=== PATIENT | male | born 1970 | race Caucasian/White ===

== ENCOUNTER 2019-04-17 18:06 | Emergency (ER) | payer MEDICAID ==
[~2019-04-17] VITALS: Ht 180.3 cm; Wt 69.7 kg
[2019-04-17] MEDS ORDERED: ketorolac tromethamine 15mg/ml inj. IM ONE (19:10)
[2019-04-17] MEDS ORDERED: orphenadrine citrate 60mg/2ml inj. IM ONE (19:10)
[2019-04-17] MEDS ORDERED: IBUP-1985 PO (19:11)
[2019-04-17] MEDS ORDERED: METH-360 PO (19:11)
[2019-04-17 19:35] VITALS: BP 127/65
== END 2019-04-17 19:36 | disposition home or self-care (01) ==
LOC: ER 18:06
DX: S29.019A Strain of muscle and tendon of unspecified wall of thorax, initial encounter (principal); M54.5 Low back pain; F17.200 Nicotine dependence, unspecified, uncomplicated; F10.99 Alcohol use, unspecified with unspecified alcohol-induced disorder; Z79.899 Other long term (current) drug therapy; X58.XXXA Exposure to other specified factors, initial encounter; Y93.89 Activity, other specified; Y92.89 Other specified places as the place of occurrence of the external cause; Y99.8 Other external cause status; Y90.9 Presence of alcohol in blood, level not specified
CPT/HCPCS: 96372; 99283; J1885; J2360